=== PATIENT | male | born 1970 ===

== ENCOUNTER 2017-05-13 15:42 | Emergency (ER) | payer BC, MEDICAID ==
[2017-05-13 15:49] VITALS: BMI 33.0
--- NOTE | 2017-05-13 15:57 | ED PDOC ---
Arrival/HPI - General Chief Complaint: Abnormal Skin Integrity Time Seen by Provider: 05/13/17 15:49 Historian: Patient - History of Present Illness Narrative History of Present Illness (Text): 05/13/17 15:57 This 46 yo male is brought to this ED c/o left lateral chest abscess x 2 days. Patient stated he was able top drain pus from his wound this morning. He stated abscess has improved, however wound has redness surrounding wound, and he feels he needs antibiotic. Denies other complains. Time/Duration: Other (see hpi) Context: Home Past Medical History - Provider Review Nursing Documentation Reviewed: Yes - Infectious Disease Hx of Infectious Diseases: None - Tetanus Immunization Tetanus Immunization: Up to Date - Cardiac Hx Cardiac Disorders: Yes - Pulmonary Hx Respiratory Disorders: Yes Hx Asthma: Yes - Neurological Hx Neurological Disorder: No - HEENT Hx HEENT Disorder: No - Renal Hx Renal Disorder: No - Endocrine/Metabolic Hx Endocrine Disorders: No - Hematological/Oncological Hx Blood Disorders: No - Integumentary Hx Dermatological Disorder: No - Musculoskeletal/Rheumatological Hx Musculoskeletal Disorders: No - Gastrointestinal Hx Gastrointestinal Disorders: Yes Hx Gastroesophageal Reflux: Yes - Genitourinary/Gynecological Hx Genitourinary Disorders: No - Psychiatric Hx Psychophysiologic Disorder: No Hx Substance Use: No - Past Surgical History Past Surgical History: No Previous - Surgical History Hx Orthopedic Surgery: Yes (LEFT GREAT TOE AMPUTATION w/ skin graft s/p crush injury) - Anesthesia Hx Anesthesia: Yes Hx Anesthesia Reactions: No Hx Malignant Hyperthermia: No - Suicidal Assessment Feels Threatened In Home Enviroment: No Family/Social History - Physician Review Nursing Documentation Reviewed: Yes Family/Social History: Other (noncontributory) Smoking Status: Heavy Smoker > 10 Cigarettes Daily Hx Alcohol Use: No Hx Substance Use: No Hx Substance Use Treatment: No Allergies/Home Meds Allergies/Adverse Reactions: Allergies No Known Allergies Allergy (Verified 05/13/17 15:49) Home Medications: Home Meds Medication Instructions Recorded Confirmed Cyclobenzaprine [Flexeril] 5 mg PO DAILY 05/13/17 05/13/17 Naproxen 0 mg PO DAILY 05/13/17 05/13/17 Ranitidine HCl [Zantac 75] 0 mg PO DAILY 05/13/17 05/13/17 Review of Systems - Review of Systems Constitutional: Normal. absent: Fatigue, Weight Change, Fevers Eyes: Normal ENT: Normal Respiratory: Normal Cardiovascular: Normal Gastrointestinal: Normal Genitourinary Male: Normal Musculoskeletal: Normal Skin: Abscess, Cellulitis Neurological: Normal Endocrine: Normal Hemo/Lymphatic: Normal Psychiatric: Normal Physical Exam Vital Signs Temp Pulse Resp BP Pulse Ox 05/13/17 15:55 98.5 F 91 H 18 118/78 97 05/13/17 15:52 98.5 F 88 17 118/76 95 Temperature: Afebrile Blood Pressure: Normal Pulse: Regular Respiratory Rate: Normal Appearance: Positive for: Well-Appearing, Non-Toxic, Comfortable Pain Distress: None Mental Status: Positive for: Alert and Oriented X 3 - Systems Exam Head: Present: Atraumatic, Normocephalic Pupils: Present: PERRL Extroacular Muscles: Present: EOMI Conjunctiva: Present: Normal Mouth: Present: Moist Mucous Membranes Neck: Present: Normal Range of Motion Respiratory/Chest: Present: Clear to Auscultation, Good Air Exchange. No: Respiratory Distress, Accessory Muscle Use, Wheezes, Retracting, Rhonchi Cardiovascular: Present: Regular Rate and Rhythm, Normal S1, S2. No: Murmurs Upper Extremity: Present: Normal Inspection, Normal ROM Lower Extremity: Present: Normal Inspection, Normal ROM Neurological: Present: GCS=15, CN II-XII Intact, Speech Normal, Motor Func Grossly Intact, Normal Sensory Function, Normal Cerebellar Funct, Gait Normal Skin: Present: Warm, Dry, Normal Color, Other ((+) mild indurated abscess with a draining pu. No pus seen. There is a surrounding erythema appox. 3 cm.). No : Rashes Lymphatic: No: Axillary Adenopathy Psychiatric: Present: Alert, Oriented x 3, Normal Insight, Normal Concentration Medical Decision Making ED Course and Treatment: 05/13/17 16:13 Re-evaluation. Patient feels better. Discussed results and plan with patient who expresses understanding. All questions answered and there is agreement with the plan to discharge home with instructions. Patient stable for discharge. Return if symptoms persist or worsen. Patient was recommended to take abx as instructed. To continue with warmth compress, and to return to ED if infection worsen. To f/u pmd in 2 days. Re-evaluation Time: 16:13 Reassessment Condition: Re-examined, Improved Disposition/Present on Arrival - Present on Arrival Any Indicators Present on Arrival: No History of DVT/PE: No History of Uncontrolled Diabetes: No Urinary Catheter: No History of Decub. Ulcer: No History Surgical Site Infection Following: None - Disposition Have Diagnosis and Disposition been Completed?: Yes Diagnosis: Cellulitis and abscess of other specified site Disposition: HOME/ ROUTINE Disposition Time: 16:15 Patient Plan: Discharge Patient Problems: Current Active Problems Problem Status Onset Cellulitis and abscess of other specified site Acute Condition: GOOD Discharge Instructions (ExitCare): Cellulitis (ED) Additional Instructions: Call private doctor for follow up visit in 1-2 days. Take medication as instructed. Apply warmth compress 3 times daily for a couple of days. Return to emergency if infection worsen. Prescriptions: Cephalexin [cephalexin] 500 mg PO QID #28 cap Sulfamethoxazole/Trimethoprim [Bactrim DS 800 mg-160 mg] 1 tab PO BID #14 tab Referrals: Bethanie Roberts MD [Primary Care Provider] - Follow up with primary Forms: OLED-T (Turkmen)
[2017-05-13] MEDS ORDERED: Tmp-Smz 800 mg-160 mg DS Tab PO STA (16:06)
[2017-05-13 16:18] VITALS: BP 118/78; PULSE 91; RESP 18; TEMP 98.5; O2SAT 97
== END 2017-05-13 16:26 | disposition home or self-care (01) ==
LOC: ED 15:42
DX: L02.818 Cutaneous abscess of other sites (principal); L03.818 Cellulitis of other sites